=== PATIENT | female | born 1950 | race Caucasian/White ===

== ENCOUNTER 2022-10-12 13:34 | Outpatient (CLI) | payer MEDICARE, SELFPAY ==
--- NOTE | 2022-10-12 13:40 | CRLHL7_ITS ---
For Patients: As a result of the Century Cures Act, medical imaging exams and procedure reports are released immediately into your electronic medical record. You may view this report before your referring provider. If you have questions, please contact your health care provider. BILATERAL SCREENING MAMMOGRAM WITH COMPUTER-AIDED DETECTION AND TOMOSYNTHESIS TECHNIQUE: CC and MLO views were obtained. These mammographic images have been obtained using full-field digital technique. These mammographic images were interpreted with the benefit of computer-aided detection. Breast Tomosynthesis was used in this interpretation. COMPARISON FILM: 09/28/21, 06/28/20, 06/24/19. FINDINGS: The breasts are heterogeneously dense, which may obscure small masses IMPRESSION: There is no radiographic evidence for malignancy. ASSESSMENT: BI-RADS Category 1: Negative RECOMMENDATION: Routine screening mammogram in 1 year. A lay language report of this examination will be provided to the patient. South Gordon M.D. Diagnostic Radiologist [email or web address] Transcribed: 3:20 [email or web address] barone/Dictated by: South Gordon MD @ 10/13/2022 8:35:00 AM (Electronically Signed)
== END 2022-10-12 13:35 | disposition home or self-care (01) ==
LOC: MAMMO 13:36
PROVIDERS: PCP Family Medicine; Visit Provider Family Medicine
DX: Z12.31 Encounter for screening mammogram for malignant neoplasm of breast (principal); R92.2 Inconclusive mammogram
CPT/HCPCS: 77063; 77067

== ENCOUNTER 2023-10-15 10:01 | Outpatient (CLI) | payer MEDICARE, BC, SELFPAY ==
--- NOTE | 2023-10-15 10:15 | CRLHL7_ITS ---
For Patients: As a result of the Cures Act, medical imaging exams and procedure reports are released immediately into your electronic medical record. You may view this report before your referring provider. If you have questions, please contact your health care provider. BILATERAL DIGITAL SCREENING MAMMOGRAM WITH TOMOSYNTHESIS AND COMPUTER-AIDED DETECTION CLINICAL HISTORY: Routine screening exam. COMPARISON: 10/12/2022, 09/28/2021, 06/28/2020, 06/24/2019. TECHNIQUE: Digital mammogram in CC and MLO projections including computer-aided detection (CAD). Tomosynthesis utilized. BREAST COMPOSITION: The breasts are heterogeneously dense, which may obscure small masses. FINDINGS: RIGHT Breast: Focal asymmetric density within the lower inner quadrant 3 cm from the nipple. LEFT Breast: No suspicious findings. IMPRESSION: RIGHT breast asymmetry/mass. RECOMMENDATIONS: Additional mammographic views of the RIGHT breast including 3D spot compression CC/MLO. RIGHT breast ultrasound may also be required. BI-RADS Category 0: Incomplete: Need Additional Imaging Evaluation and/or Prior Mammograms for Comparison The [facility] will contact the patient for follow-up. A lay language report of this examination will be provided to the patient. Dictated by South Gordon MD @ 10/15/2023 10:37:49 AM jj/Dictated by: South Gordon MD @ 10/15/2023 10:37:00 AM (Electronically Signed)
== END 2023-10-15 10:02 | disposition home or self-care (01) ==
LOC: MAMMO 10:04
PROVIDERS: Visit Provider Obstetrics & Gynecology
DX: Z12.31 Encounter for screening mammogram for malignant neoplasm of breast (principal); N63.10 Unspecified lump in the right breast, unspecified quadrant; R92.2 Inconclusive mammogram
CPT/HCPCS: 77063; 77067

== ENCOUNTER 2023-10-23 09:29 | Outpatient (CLI) | payer MEDICARE, BC, SELFPAY ==
--- NOTE | 2023-10-23 09:45 | CRLHL7_ITS ---
For Patients: As a result of the Cures Act, medical imaging exams and procedure reports are released immediately into your electronic medical record. You may view this report before your referring provider. If you have questions, please contact your health care provider. DIGITAL DIAGNOSTIC RIGHT MAMMOGRAM USING TOMOSYNTHESIS AND COMPUTER-AIDED DETECTION RIGHT BREAST ULTRASOUND CLINICAL HISTORY: RIGHT breast mass/asymmetry. COMPARISON: 10/15/2023. TECHNIQUE: Digital RIGHT mammogram in two projections. Tomosynthesis and CAD utilized. Real-time ultrasound imaging of RIGHT breast with imaging documentation. Scanning was performed by both the technologist and the radiologist. BREAST COMPOSITION: The breast is heterogeneously dense, which may obscure small masses. FINDINGS: 3D spot compression CC/MLO RIGHT breast mammogram images submitted. Persistent nodular density retroareolar plane mid depth. No architectural distortion. Targeted sonogram retroareolar plane mid depth demonstrates a simple anechoic cyst measuring 8 x 8 x 7 millimeters. Increase through-transmission. No abnormal vascularity. IMPRESSION: Benign cyst RIGHT breast retroareolar plane measuring 8 millimeters. No evidence of malignancy. RECOMMENDATIONS: Annual BILATERAL screening mammography. Results and recommendations discussed with the patient. BI-RADS Category 2: Benign A lay language report of this examination will be provided to the patient. Dictated by South Gordon MD @ 10/23/2023 10:55:55 AM /Dictated by: South Gordon MD @ 10/23/2023 10:55:00 AM (Electronically Signed)
--- NOTE | 2023-10-23 10:15 | CRLHL7_ITS ---
For Patients: As a result of the Cures Act, medical imaging exams and procedure reports are released immediately into your electronic medical record. You may view this report before your referring provider. If you have questions, please contact your health care provider. PLEASE SEE DIGITAL DIAGNOSTIC RIGHT MAMMOGRAM PERFORMED SAME DAY [email or web address] barone/Dictated by: South Gordon MD @ 10/23/2023 10:53:00 AM (Electronically Signed)
== END 2023-10-23 09:30 | disposition home or self-care (01) ==
PROVIDERS: PCP Family Medicine; Visit Provider Physician Assistant
DX: N63.10 Unspecified lump in the right breast, unspecified quadrant (principal); N60.01 Solitary cyst of right breast; R92.8 Other abnormal and inconclusive findings on diagnostic imaging of breast
CPT/HCPCS: 76642; 77065; G0279

== ENCOUNTER 2024-11-20 13:15 | Outpatient (CLI) | payer MEDICARE, BC, SELFPAY ==
--- NOTE | 2024-11-20 13:20 | CRLHL7_ITS ---
For Patients: As a result of the Century Cures Act, medical imaging exams and procedure reports are released immediately into your electronic medical record. You may view this report before your referring provider. If you have questions, please contact your health care provider. BILATERAL SCREENING MAMMOGRAM WITH COMPUTER-AIDED DETECTION AND TOMOSYNTHESIS TECHNIQUE: CC and MLO views were obtained. These mammographic images have been obtained using full-field digital technique. These mammographic images were interpreted with the benefit of computer-aided detection. Breast tomosynthesis was used in this interpretation. COMPARISON FILM: 10/15/23, 10/12/22, 09/28/21. FINDINGS: The breasts are heterogeneously dense, which may obscure small masses. IMPRESSION: There is no radiographic evidence for malignancy. ASSESSMENT: BI-RADS Category 2: Benign RECOMMENDATION: Routine screening mammogram in 1 year. A lay language report of this examination will be provided to the patient. SOUTH CLOUD M.D. Diagnostic Radiologist [email or web address] Transcribed: 11/24/2024, 10:[address]/Dictated by: South Cloud MD @ 11/21/2024 9:42:00 AM (Electronically Signed)
== END 2024-11-20 13:16 | disposition home or self-care (01) ==
PROVIDERS: PCP Family Medicine; Visit Provider Family Medicine
DX: Z12.31 Encounter for screening mammogram for malignant neoplasm of breast (principal); R92.333 Mammographic heterogeneous density, bilateral breasts
CPT/HCPCS: 77063; 77067

== ENCOUNTER 2025-07-16 14:24 | Outpatient (CLI) | payer MEDICARE, BC, SELFPAY ==
[2025-07-22 12:09] LABS: Pap Test Digital Imaging Done
== END 2025-07-16 14:25 | disposition home or self-care (01) ==
LOC: NFLDREF 14:24
PROVIDERS: PCP Family Medicine; Visit Provider Obstetrics & Gynecology
DX: C53.9 Malignant neoplasm of cervix uteri, unspecified (principal)
CPT/HCPCS: 88141; 88142; 88175

== ENCOUNTER 2025-08-27 10:20 | Outpatient (CLI) | payer MEDICARE, BC, SELFPAY | END 2025-08-27 10:21 | disposition home or self-care (01) | LOC: NFLDREF 09-11 02:05 | PROVIDERS: PCP Family Medicine; Referring Provider Family Medicine; Visit Provider Obstetrics & Gynecology | DX: F52.0 Hypoactive sexual desire disorder (principal) | CPT/HCPCS: 84403 ==